=== PATIENT | male | born 1995 | race American Indian/Alaskan Native ===

== ENCOUNTER 2020-10-06 02:46 | Emergency (ER) | payer OTHER ==
[~2020-10-06] VITALS: Ht 177.8 cm; Wt 74.4 kg
[~2020-10-06 02:46] MED LIST: IBUPROFEN600 MG PO; NORCO 5-325 TA1 EACH PO
[2020-10-06] MEDS ORDERED: PENICILLIN V P500 MG PO (03:18)
== END 2020-10-06 03:32 | disposition home or self-care (01) ==
LOC: ED 02:46
DX: K02.9 Dental caries, unspecified (principal); F17.200 Nicotine dependence, unspecified, uncomplicated
CPT/HCPCS: 99282